=== PATIENT | female | born 1960 | race Caucasian/White ===

== ENCOUNTER 2016-12-16 18:56 | Emergency (ER) | payer OTHER ==
[~2016-12-16] VITALS: Ht 167.6 cm; Wt 70.0 kg
[2016-12-16] MEDS ORDERED: ONDANSETRON 2MG/ML, 2ML ONE ×2 (19:14→21:58)
[2016-12-16] MEDS ORDERED: MORPHINE SULFATE 4 MG/ML, 1ML ONE ×3 (19:25→21:26)
[2016-12-16] MEDS: MORPHINE SULFATE 4 MG/ML, 1ML IVPush PRN ×2 (19:28→21:31)
[2016-12-16] MEDS ORDERED: SODIUM CHLORIDE 0.9% 1,000ML IVBOLUS ONE (19:30)
[2016-12-16] MEDS ORDERED: ONDANSETRON 2MG/ML, 2ML IVPush ONE ×2 (19:30→22:00)
[2016-12-16 19:49] LABS: ASPARTATE AMINO TRANSFERASE 12 U/L (15-37); BLOOD UREA NITROGEN 13 mg/dL (7-18); HEMOGLOBIN 14.3 g/dL (11.7-16.4)
[2016-12-16] MEDS ORDERED: OMNIPAQUE 350 MG/ML, 100ML BOTTLE ONE (21:00)
[2016-12-16] MEDS ORDERED: CIPROFLOXACIN 500 MG TABLET ONE (21:58)
[2016-12-16] MEDS ORDERED: metroNIDAZOLE 500 MG TABLET ONE (21:58)
[2016-12-16] MEDS ORDERED: CIPROFLOXACIN 500 MG TABLET PO ONE (22:00)
[2016-12-16] MEDS ORDERED: metroNIDAZOLE 500 MG TABLET PO ONE (22:00)
[2016-12-16 22:12] VITALS: BP 116/62
[2016-12-16] MEDS ORDERED: METOCLOPRAMIDE 5 MG/ML, 2ML ONE (22:18)
[2016-12-16] MEDS ORDERED: METOCLOPRAMIDE 5 MG/ML, 2ML IVPush ONE (22:30)
== END 2016-12-16 22:48 | disposition home or self-care (01) ==
LOC: ED 22:36
DX: R10.32 Left lower quadrant pain (principal); Z90.710 Acquired absence of both cervix and uterus
CPT/HCPCS: 36415; 74177; 80053; 81001; 83690; 84439; 84443; 85025; 87040; 96361; 96374; 96375; 96376; 99285; J2405; J2765; J7030; Q9967